=== PATIENT | male | born 1975 | race Caucasian/White ===

== ENCOUNTER 2022-07-12 03:43 | Emergency (ER) | payer OTHER, SELFPAY ==
[2022-07-12 03:48] VITALS: BP 134/79; PULSE 89; RESP 18; TEMP 36.7; O2SAT 99
--- NOTE | 2022-07-12 03:58 | ED.EAR ---
HPI - Ear Problem General Time Seen by Provider: 03:58 Date Seen: 07/12/22 Chief complaint: Ear/Nose/Throat Problem Stated complaint: sharp pain behind left ear. Time Seen by Provider: 07/12/22 03:45 Source: patient and family Mode of arrival: ambulatory Limitations: no limitations History of Present Illness HPI Narrative: 47-year-old male who comes in with pain just inferior and posterior to his left ear. He has been finding some sinus congestion which is a regular problem for him, uses Flonase regularly but has had a frontal headache and some posterior headache over the last couple of days. No fevers, no breathing difficulty, no cough. Feels like his ears are full. Woke up tonight with pain but left ear decided to come in. Related Data Home Medications Medication Instructions Recorded Confirmed valsartan 80 mg tablet 80 mg PO HS 07/12/22 07/12/22 warfarin 10 mg tablet 10 mg PO DAILY 07/12/22 07/12/22 warfarin 2.5 mg tablet 2.5 mg PO DAILY 07/12/22 07/12/22 Allergies Allergy/AdvReac Type Severity Reaction Status Date / Time No Known Drug Allergies Allergy Verified 07/12/22 03:52 Review of Systems Status of ROS: Reports: 10 or more systems reviewed and unremarkable except as noted in History and below Exam Narrative: Exam Narrative: General: well nourished , NAD Head: Atraumatic and normocephalic ENT: External ears and external nose are normal, tympanic membranes are pearly cody bilaterally. No drainage or debris in the external auditory canals bilaterally, no tenderness is external auditory canal. Just inferior and posterior to the left ear there is a tender mobile nodule which is source of patient's pain. There is no redness or induration of the mastoid to suggest acute mastoiditis. Eyes: Conjunctiva clear, pupils are equal reactive, external ocular motions are intact Neck: Full spontaneous range of motion of the neck Lungs: No respiratory distress Musculoskeletal: No tenderness or deformity Neurologic: No gross focal neurologic deficits Skin: No rashes Psych: Mood and affect are appropriate Const: Vital Signs, click to edit/add: Vital Signs - 24 hr 07/12/22 03:48 Temperature 98.0 F Pulse Rate [Right Pulse Oximeter] 89 Respiratory Rate 18 Blood Pressure [Ri ght Upper Arm] 134/79 Pulse Oximetry 99 Oxygen Delivery Me thod Room Air Course Course Hospital Course: Patient seen and examined, prior records are reviewed. Differential diagnosis includes but not limited to mastoiditis, malignant otitis, otitis media, sinusitis. Patient presents with nasal congestion and now some pain just inferior to on the left ear. There is a tender nodule in this area which represents an inflamed lymph node. Pressing on this reproduces patient's pain. Do not suspect mastoiditis. Patient was started on Augmentin and follow up with primary care as scheduled. Vital Signs Vital signs: Initial Vital Signs Temperature 98.0 F 07/12/22 03:48 Temperature Source Temporal Artery Scan 07/12/22 03:48 Pulse Rate 89 07/12/22 03:48 Respiratory Rate 18 07/12/22 03:48 Blood Pressure 134/79 07/12/22 03:48 Blood Pressure Mean 97 07/12/22 03:48 Blood Pressure Position Sitting 07/12/22 03:48 Pulse Oximetry 99 07/12/22 03:48 Oxygen Delivery Method 07/12/22 03:48 Vital Signs Temperature 98.0 F 07/12/22 03:48 Pulse Rate 89 07/12/22 03:48 Respiratory Rate 18 07/12/22 03:48 Blood Pressure 134/79 07/12/22 03:48 Pulse Oximetry 99 07/12/22 03:48 Oxygen Delivery Method 07/12/22 03:48 Temperature 98.0 F 07/12/22 03:48 Pulse Rate 89 07/12/22 03:48 Respiratory Rate 18 07/12/22 03:48 Blood Pressure 134/79 07/12/22 03:48 Pulse Oximetry 99 07/12/22 03:48 Oxygen Delivery Method 07/12/22 03:48 Medical Decision Making Medical Records Medical records reviewed: Yes I reviewed the patient's medical records Lab Data Lab results reviewed: Yes I reviewed the patient's lab results Discharge Plan Discharge Clinical Impression: LAD (lymphadenopathy), periauricular Patient Disposition: Home, Self-Care Condition: Stable Instructions: Lymphadenopathy (ED) Additional Instructions: Take Tylenol as needed. Take antibiotics as prescribed. Warm packs or cool packs for comfort Activity Level: No Restrictions Discharge Diet: Regular Prescriptions: No Action valsartan 80 mg tablet 80 mg PO HS warfarin 10 mg tablet 10 mg PO DAILY warfarin 2.5 mg tablet 2.5 mg PO DAILY Stand Alone Forms: [employer] Info Instructions
[2022-07-12 04:06] VITALS: BP 134/79; PULSE 89; RESP 18; TEMP 36.7
--- OUTSIDE RECORDS SUMMARY | 2022-07-12 04:11 | XMS_ITS | Clinical Summary ---
:1975 Author Organization [employer] Address [address] [address] Phone Care Team Providers Name Role Phone Unavailable Primary Care Provider Unavailable Social History Tobacco Use Types Packs/Day Years Used Date Smoking Tobacco: Never Assessed Sex Assigned at Date Recorded Not on file Plan of Treatment Health Maintenance Due Date Last Done Comments CT Colonography 1973 Cologuard 1975 Colonoscopy 1973 Colorectal Cancer Screening 1973 FIT/FOBT 1973 Sigmoidoscopy 1973 COVID-19 Vaccine (#1) 1973 PERTUSSIS (Standing Order) 02/22/1992 TETANUS (Standing Order) 02/22/1992 Influenza Vaccine Seasonal 04/01/2022 (Standing Order) (#1) Pneumococcal/PCV Vaccine: Aged Out No tomasz chan eligible based on Pediatrics (0-5 yrs) and At-Risk patient's age to complete Patients (6-64 yrs) (Standing th is topic Order) Insurance Payer Benefit Plan / Subscriber Effective Phone Address Type Group ID Dates [facility] [id number] 01/29/2019-Pr [phone] [address] [facility] PRIME esent [phone] [place] [phone]
--- OUTSIDE RECORDS SUMMARY | 2022-07-12 04:11 | XMS_ITS | Encounter Summary ---
:1975 Author Organization [employer] Address [address] [place] [phone] Phone Care Team Providers Name Role Phone Unavailable Primary Care Provider Unavailable Encounter Details Date Type Department Care Team Description 10/24/2017 [facility], [facility] Phlebotomy HEALTH/NURSE VISIT Center Laboratory [address] [address] [place] [address] [place] [address] Social History Tobacco Use Types Packs/Day Years Used Date Smoking Tobacco: Never Assessed Sex Assigned at Date Recorded Not on file documented as of this encounter Plan of Treatment Not on filedocumented as of this encounter Procedures Procedure Name Priority Date/Time Associated Diagnosis Comme nts PROTIME Routine 10/24/2017 10:20 AM Long-term (current) u se Results for this CDT of anticoagulants procedure are in the results section. documented in this encounter Results PROTIME (10/24/2017 10:20 AM CDT) P athologist Signature INR 1.0 0.9 - 1.1 10/24/2017 [facility] 11:21 AM [facility] Protime 13.5 12.1 - 14.4 10/24/2017 [facility] sec 11:21 AM [facility] Specimen Anatomical Collection Method / Collection Time Recei braxton Time (Source) Location / Volume Laterality Blood specimen BLOOD SPECIMEN / Venipuncture / 10/24/2017 10:20 (specimen) Unknown Unknown AM CDT 10:54 AM CDT Narrative [facility] LAB[facility]ATOR Y - 10/24/2017 11:21 AM CDT SUGGESTED THERAPEUTIC INR RANGES FOR ORAL ANTICOAGULANT THERAPY CATEGORY ? INR PROPHYLAXIS ?2.0-3.0 TREAT THROMBOSIS OR EMBOLISM ? 2.0-3 .0 PROSTHETIC HEART VALVE ? 2. 5-3.5 Citlali Leo MD EC HEMATOLOGY ORDERABLES Performing Organization Address City/State/ZIP Code Phon e Number [facility] [address] [place] [address] [address] LABORATORY documented in this encounter Visit Diagnoses Diagnosis Long-term (current) use of anticoagulant s - Primary Encounter for long-term (current) use of anticoagulants documented in this encounter
--- OUTSIDE RECORDS SUMMARY | 2022-07-12 04:11 | XMS_ITS | Encounter Summary ---
:1975 Author Organization [employer] Address [address] [place] [phone] Phone Care Team Providers Name Role Phone Unavailable Primary Care Provider Unavailable Encounter Details Date Type Department Care Team Description 10/26/2017 [facility] Medical Lab, [facility] Phlebotomy HEALTH/NURSE VISIT Center Laboratory [facility] [address] [place] [address] [place] [address] Social History Tobacco Use Types Packs/Day Years Used Date Smoking Tobacco: Never Assessed Sex Assigned at Date Recorded Not on file documented as of this encounter Plan of Treatment Not on filedocumented as of this encounter Procedures Procedure Name Priority Date/Time Associated Diagnosis Comme nts PROTIME Routine 10/26/2017 10:10 AM Embolism and thrombos is Results for this CDT of right popliteal vein proc edure are in (HCC) the results Long-term (current) use sect ion. of anticoagulants documented in this encounter Results (ABNORMAL) PROTIME (10/26/2017 10:10 AM CDT) P athologist Signature INR 1.2 (H) 0.9 - 1.1 10/26/2017 [facility] 10:17 AM [facility] LABORATORY Protime 14.9 (H) 12.1 - 14.4 10/26/2017 [facility] sec 10:17 AM [facility] Specimen Anatomical Collection Method / Collection Time Recei braxton Time (Source) Location / Volume Laterality Blood specimen BLOOD SPECIMEN / Venipuncture / 10/26/2017 10:10 (specimen) Unknown Unknown AM CDT 10:10 AM CDT Narrative [facility] LABORATOR Y - 10/26/2017 10:17 AM CDT SUGGESTED THERAPEUTIC INR RANGES FOR ORAL ANTICOAGULANT THERAPY CATEGORY ? INR PROPHYLAXIS ?2.0-3.0 TREAT THROMBOSIS OR EMBOLISM ? 2.0-3 .0 PROSTHETIC HEART VALVE ? 2. 5-3.5 Citlali Leo MD EC HEMATOLOGY ORDERABLES Performing Organization Address City/State/ZIP Code Phon e Number [facility] [address] [place] [address] 401 LABORATORY documented in this encounter Visit Diagnoses Diagnosis Embolism and thrombosis of right poplite al vein (HCC) - Primary Acute venous embolism and thrombosis of deep vessels of proximal lower extremity Long-term (current) use of anticoagulant s Encounter for long-term (current) use of anticoagulants documented in this encounter
--- OUTSIDE RECORDS SUMMARY | 2022-07-12 04:12 | XMS_ITS | Clinical Summary ---
:1975 Author Organization [employer] [place] [address] Care Team Providers Name Role Phone Kimberlee Schmidt MD Primary Care Provider [phone] Allergies No known active allergies Medications Medication Sig Dispensed Refills Start Date End Date Status MULTIVITAMIN TAB take 1 tablet by 0 08/11/2006 Active oral route once daily with food [id number] Apply to the 0 04/30/2020 Active -hc124 (A[place], lining of the ASCORBATE SODIUM,) mouth. 250-1.25 mg lozgIndications: Anticoagulation monitoring, INR range 2-3 durable medical Stacked heel 1 Each 0 09/23/2020 Active equipment lifts (DME)Indications: Gastrocnemius tear, right, initial encounter, Right calf pain valsartan (DIOVAN) 80 mg Take 1 Tablet 90 Tablet 3 03/10/2022 Active tabletIndications: HTN (80 mg) by mouth (hypertension) once daily. warfarin (COUMADIN) 2.5 Take by mouth 10 65 Tablet 0 2 Active mg tabletIndications: mg (10 mg x 1) Acute deep vein every Mon, Sheba; thrombosis (DVT) of 7.5 mg (2.5 mg x other specified vein of 1 and 10 mg x right lower extremity 0.5) all other (HC), Anticoagulation days in the monitoring, INR range evening OR as 2-3, Acute deep vein directed thrombosis (DVT) of distal vein of right lower extremity (HC) warfarin (COUMADIN) 10 Take by mouth 10 75 Tablet 0 05/17/2022 Active mg tabletIndications: mg (10 mg x 1) Acute deep vein every Mon, Sheba; thrombosis (DVT) of 7.5 mg (2.5 mg x other specified vein of 1 and 10 mg x right lower extremity 0.5) all other (HC), Anticoagulation days in the monitoring, INR range evening OR as 2-3, Acute deep vein directed thrombosis (DVT) of distal vein of right lower extremity (HC) Active Problems Problem Noted Date HTN (hypertension) 10/05/2021 Acute deep vein thrombosis (DVT) of other specified ve in of right lower 03/07/2020 extremity Thoracic aortic aneurysm without rupture 09/28/2018 Overview: Incidental finding. 4.[address] 09/28/18 Anticoagulation monitoring, INR range 2-3 10/20/2017 Bicuspid aortic valve 09/15/2012 Resolved Problems Problem Noted Date Resolved Date Acute deep vein thrombosis (DVT) of popliteal vein of right 10/18/2017 02/07/2018 lower extremity Piriformis syndrome of right side 10/17/20172019 Acute pain of right knee 10/17/2017 05/07/2020 Right calf pain 10/17/2017 05/07/2020 PSORIASIS - NOS 05/23/2003 10/05/2021 Encounters Date Type Specialty Care Team Description 06/29/2022 Anticoagulation Clinic, [facility] Anticoagulat ion (warfarin) Inr 06/28/2022 Travel 06/01/2022 Anticoagulation Clinic, [facility] Anticoagulat ion (Lab (warfarin) Inr only/) 05/31/2022 Orders Only Lab, [facility] 05/31/2022 Travel 05/16/2022 Refill Brayan, Refill Request Kimberlee Mercado (Warfarin) 05/03/2022 Anticoagulation Clinic, [facility] Anticoagulat ion (warfarin) Inr 04/30/2022 Orders Only Lab, [facility] Lab 04/30/2022 Travel from Last 3 Months Immunizations Name Administration Dates Next Due AMB Influenza, IIV3 (Age >=3 05/14/2011, 05/26/2010 years)(Flu Clinic Only) Hepatitis B (Adult) 10/05/1999, 01/16/1999, 10/29/1998 Influenza A (H1N1), Inactivated (Age 0108/11/2009 >=3 Years) Influenza, IIV3 (Age >=3 years) 08/11/2009, 06/05/2008, 09/2005, 06/11/2005 Influenza, IIV4 05/25/2018, 05/24/2016, 05/23/2015 Influenza, IIV4 (=>6mos) MDV 06/05/2019 Influenza,CCIIV4 PRESERV FREE 06/01/2017 Td (Age >=7 Years) 10/10/1998 Tdap 02/18/2016 Family History Medical History Relation Name Comments Ulcerative colitis Father Brain Aneurysm Maternal Grandmother Hemorrhage Brain Aneurysm Maternal Uncle 1 Heart attack Maternal Uncle 2 Cancer-colon Maternal Uncle 3 Crohn's disease Mother Psoriasis Sister 1 Katie No Known Problems Sister 2 Saray No Known Problems Sister 3 Lisa Relation Name Status Comments Father Alive Maternal Grandfather Maternal Grandmother Maternal Uncle 1 Maternal Uncle 2 Maternal Uncle 3 Mother Alive Paternal Grandfather Paternal Grandmother Sister 1 Katie Alive Sister 2 Saray Alive Sister 3 Lisa Alive Social History Tobacco Use Types Packs/Day Years Used Date Smoking Tobacco: Never Smokeless Tobacco: Never Tobacco Cessation: Counseling Given: Yes Alcohol Use Standard Drinks/Week Comments Yes 5 (1 standard drink = 0.6 oz pure 1-2 da ys a week; 1-2 drinks at a alcohol) time Sex Assigned at Date Recorded Not on file COVID-19 Exposure Response Date Recorded In the last 10 days, have you been in contact with No / Unsu re 06/28/2022 2:47 PM CASHIER someone who was confirmed or suspected to have Coronavirus/COVID-19? Obstetrics History Last Filed Vital Signs Vital Sign Reading Time Taken Comments Blood Pressure 131/88 11/08/2021 8:31 PM CDT Pulse 95 11/08/2021 8:31 PM CDT Temperature 36.6 ??C (97.8 ??F) 11/08/2021 8:31 PM CDT Respiratory Rate 16 11/08/2021 8:31 PM CDT Oxygen Saturation 97% 11/08/2021 8:31 PM CDT Inhaled Oxygen Concentration - - Weight 95.3 kg (210 lb) 11/08/2021 8:31 PM CDT Height 180.3 cm (5' 11) 11/08/2021 8:31 PM CDT Body Mass Index 29.29 11/08/2021 8:31 PM CDT Plan of Treatment Upcoming Encounters Date Type Specialty Care Team Description 07/12/2022 [place] [address] [address] [place], [place] [address] (Wo rk) 07/29/2022 Orders Only Lab, [facility] 08/12/2022 [place] [id number] [place], [place] [address] (Wo rk) Health Maintenance Due Date Last Done Comments HIV for age 15-65 02/22/1988 Hepatitis C screening for age 0702/21/1991 18-79 Colonoscopy through age 75 2018 COVID-19 vaccine series (3 - 12/18/2020 10/23/2020, 021 Booster for Moderna series) Influenza for age 9-49 04/01/2022 06/05/2019, 05/25/2018, 06/01/2017, Additional history exists BMI (ht and wt on same day) for 10/05/2022 10/05/2021, 01/29, age 18+ 09/17/2020, Additional history exists Depression screening for age 12+ 10/05/2022 10/05/2021, 01/2020, 10/17/2017, Additional history exists Tetanus booster 02/17/2026 02/18/2016, 10/10/1998 Lipids for age 45-75 10/05/2026 10/05/2021, 10/06/2018 Tdap Completed 02/18/2016 Procedures Procedure Name Priority Date/Time Associated Diagnosis Comme nts INR,POCT Routine 06/28/2022 2:55 PM Acute deep vein Result s for this CASHIER thrombosis (DVT) of procedur e are in the other specified vein results section. of right lower extremity (HC) Anticoagulation monitoring, INR range 2-3 INR,POCT Routine 05/31/2022 3:12 PM Acute deep vein Result s for this CDT thrombosis (DVT) of procedur e are in the other specified vein results section. of right lower extremity (HC) Anticoagulation monitoring, INR range 2-3 INR,POCT Routine 04/30/2022 2:38 PM Acute deep vein Result s for this CDT thrombosis (DVT) of riccardo bowden are in the other specified vein results section. of right lower extremity (HC) Anticoagulation monitoring, INR range 2-3 from Last 3 Months Results (ABNORMAL) INR,POCT (06/28/2022 2:55 PM CASHIER)Only the most recent of3 results within the time period is included. P athologist Signature INR 2.6 (H) <1.3 06/28/2022 [facility] 3:00 PM CASHIER [facility] Specimen Anatomical Collection Method Collection Time Receive d Time (Source) Location / / Volume Laterality Blood BLOOD SPECIMEN / 06/28/2022 2:55 PM 06/28 3:00 Unknown CASHIER PM CASHIER Narrative [facility] [place] 3:00 PM CASHIER ?Therapeutic Range 2.0-3.0 for most anticoagulated patients 2.5-3.5 or 4.0 for high risk patients Kimberlee Schmidt MD LABORATORY Performing Organization Address City/State/ZIP Code Phon e Number [facility] [address] [place], [place] [address] CLINIC from Last 3 Months Insurance Payer Benefit Plan / Subscriber ID Effective Dates Phone Addre ss Type Group [facility] [id number] 2012-Present [address] [place] [address] [facility] [id number] 2012-Present [address] [place] [address] Care Teams Castings Drafter Relationship Specialty Start Date End Date Kimberlee Schmidt MD PCP - General Family Practice 03/12/20 [id number] [place] [address]
== END 2022-07-12 04:15 | disposition home or self-care (01) ==
PROVIDERS: Emergency Provider Family Medicine; PCP Family Medicine
DX: R59.0 Localized enlarged lymph nodes (principal)
CPT/HCPCS: 99283; 99284